=== PATIENT | female | born 1980 | race Caucasian/White ===

== ENCOUNTER 2018-09-26 11:43 | Day surgery (SDC) | payer MEDICAID ==
[2018-09-26 12:21] VITALS: BMI 30.4
[2018-09-26] MEDS ORDERED: hydrALAZINE 20 MG/ML VIAL SLOW IVP PRN (12:46)
--- NOTE | 2018-09-26 13:13 | PRG ---
DATE OF SERVICE: 09/26/2018 TIME OF SERVICE: 1245 hours. PRESENTING COMPLAINT: Vaginal spotting at 33 weeks' gestation by history with other care. HISTORY OF PRESENT ILLNESS: Ms. Dick is a 38-year-old primigravida with EDC of 11/13. She presents caring her records from [facility] in [place]. She has had a complicated by SGA infant with EFW of 7th percentile on last ultrasound, a velamentous insertion. The patient reports constipation last night, was straining on the toilet for approximately 1 hour. This morning, she noticed a small amount of blood on tissue. She has had no gush of fluid. She reports an active fetus. [employer] MEMBER HISTORY: As noted. Blood type is Rh positive. Other labs are within normal limits. The patient was placed on low-dose aspirin early in for a history of maternal hypertension, off medications for several years. PAST SURGICAL HISTORY: Denies. PAST MEDICAL HISTORY: Chronic hypertension, on medications in the past, but none recently. SOCIAL HISTORY: Denies tobacco, alcohol, or drug abuse. ALLERGIES: PCN. MEDICATIONS: 1. Aspirin. 2. Folic acid. 3. vitamins. PHYSICAL EXAMINATION: GENERAL: White female, resting comfortably. VITAL SIGNS: Temperature 98.7, blood pressure 123/69, and pulse 78. HEENT: Within normal limits. LUNGS: Clear to auscultation bilaterally. HEART: Regular rate and rhythm. ABDOMEN: Soft and nontender. Fundal height, 32 cm. FHTs, 140s. VULVA: Without lesions. VAGINA: Without discharge. CERVIX: No cervical bleeding is noted. No abnormality of the cervix was noted on visual exam. Digital exam revealed her cervix was closed, long and high. EXTREMITIES: Without clubbing, cyanosis, or edema. IMPRESSION: 1. Elderly multigravida. 2. Velamentous insertion of the umbilical cord by history. 3. No evidence of supracervical bleeding at this time. 4. Borderline growth restriction noted on last ultrasound at previous MD with normal Dopplers, amniotic fluid, and biophysical profile. The patient has a scheduled appointment with [facility] this next week. We will go ahead today and perform complete OB ultrasound, estimate weight, amniotic fluid index, etc. nonstress test was carried out today, which revealed FHTs of 140s, positive accelerations, no decelerations, category I heart rate tracing, reactive NST. Job ID: [id number] MTDD
--- NOTE | 2018-09-26 13:57 | ULT ---
EXAM: OB ultrasound COMPARISON: None HISTORY: Spotting. Decreased weight. History of velamentous insertion of the umbilical cord. TECHNIQUE: Multiplanar grayscale and color Doppler images were obtained in a transabdominal ult rasound. FINDINGS: There is a single live intrauterine with heart rate of 147 bpm. Estimated weight is 1996 g. Average age of the fetus based off today's examination is 32 weeks 6 days. BPD 8.37 cm -- 33 weeks 5 days HC 29.55 cm -- 32 weeks 5 days AC 28.40 cm -- 32 weeks 3 days FL 6.25 cm -- 32 weeks 3 days The placenta is anterior/fundal in location without focal abnormality. TOMER is 10.0 cm which is normal . The cervix is normal in length. There is no evidence of placenta previa. There appears to be velamentous insertion of the umbilical cord. IMPRESSION: 1. Single live intrauterine with estimated age of 32 weeks 6 days. 2. Redemonstration of velamentous insertion of the umbilical cord.
== END 2018-09-26 14:30 | disposition home health service (06) ==
LOC: L&D/OP 11:43
PROVIDERS: ATTEND Obstetrics & Gynecology
DX: O26.853 Spotting complicating pregnancy, third trimester (principal); O09.523 Supervision of elderly multigravida, third trimester; O43.123 Velamentous insertion of umbilical cord, third trimester; O36.5930 Maternal care for other known or suspected poor fetal growth, third trimester, not applicable or unspecified; O10.913 Unspecified pre-existing hypertension complicating pregnancy, third trimester; Z3A.33 33 weeks gestation of pregnancy; Z88.0 Allergy status to penicillin; Z79.899 Other long term (current) drug therapy; Z79.82 Long term (current) use of aspirin
CPT/HCPCS: 76815; 99283

== ENCOUNTER 2018-10-10 13:02 | Day surgery (SDC) | payer MEDICAID ==
[2018-10-10 13:58] VITALS: TEMP 98.1; BMI 32.8
--- NOTE | 2018-10-10 14:02 | PDOC.LDHP ---
Labor and Delivery H&P HPI: Here for "sotting" Patient of Dr Barajas L&D Triage in [facility] Time: 1400 HPI: 38 yo G1 at 35 weeks, first seem in [place], and then switched to care here. Last seem about 2 weeks ago. In [place], she states had 7th% growth but otherwise wnl...last visit here was 09/26/[address] Barajas. That visit had a sono with EFW that was appropriate for EGA (32 weeks, about 1900 grams). Also with vilamentous cord insert. She was at the [facility] and sent by Dr Rodriguez. She has a HX of CHTN not on meds (but was in past). She was sent here for labs as her BP was 140/100 there. HX chronic HAs which are stable per Dr Rodriguez communication. here for BP eval. Review of Systems: Complete ROS performed and as per HPI Current gestational age (weeks): 35 (1 day) Grav: 1 OB History Details: Last sono with appropriate growth and TOMER on 09/26/18 Abnormal US findings: Yes (suspected vilamentous cord insert) Current medications: pre- vitamins Allergies/Adverse Reactions: Allergies Allergy/AdvReac Type Severity Reaction Status Date / Time Penicillins Allergy Verified 09/26/18 12:24 - Physical Exam Vital signs reviewed and normal: yes (BPs 120/80s afebrile pulse 80-90s) General: NAD Heart: RRR Lungs: CTAB Abdomen: gravid Extremeties: no edema FHT: category 1 [place] contractions every: none - Assessment Primip at 35 weeks, CHTN, vilamentous cord insert suspected, chtn in C... - Plan Plan: observation in L&D ( BPs here so far are 120s/80s. We will observe BPS. Baseline CMP and CBC now. No steroids as BPs look ok right now.)
[2018-10-10] MEDS ORDERED: hydrALAZINE 20 MG/ML VIAL SLOW IVP PRN (14:14)
[2018-10-10 14:45] LABS: #Eosinphils 0.2 thou/uL (0.0-0.7); #Lymphocytes 2.9 thou/uL (1.20-3.40); #Monocytes 0.8 thou/uL (0.11-0.59); #Neutrophils 7.3 thou/uL (1.40-6.50); %Basophils 0.3 % (0.0-1.0); %Eosinophils 1.6 % (0.0-10.0); %Monocytes 6.8 % (0.0-10.0); %Neutrophils 65.3 % (42.0-75.0); Hemoglobin 11.1 g/dL (12.0-16.0); Mean Corpuscular HGB CONC 33.4 g/dL (32.0-36.0); Mean Corpuscular Hemoglobin 32.2 pg (27.0-31.0); Mean Corpuscular Volume 96.4 fL (78.0-98.0); Mean Platelet Volume 6.5 fL (7.4-10.4); Platelet Count 310 thou/uL (130-400); Red Blood Cell (RBC) Count 3.46 mill/uL (4.20-5.40); White Blood Cell (WBC) Count 11.1 thou/uL (4.8-10.8)
[2018-10-10 15:09] LABS: ALT (SGPT) 7 U/L (8-55); AST (SGOT) 13 U/L (5-34); Albumin 3.1 g/dL (3.5-5.0); Alkaline Phosphatase 108 U/L (40-150); Anion Gap 9 mmol/L (10-20); BUN (Urea Nitrogen) 7 mg/dL (7.0-18.7); Bilirubin, Total 0.3 mg/dL (0.2-1.2); Calc. Creatinine Clearance 176 mL/min (70-130); Calcium 9.5 mg/dL (7.8-10.44); Carbon Dioxide 22 mmol/L (22-29); Chloride 107 mmol/L (98-107); Estimated GFR-MDRD Greater than 90; Globulin 3.3 g/dL (2.4-3.5); Glucose 90 mg/dL (70-105); Potassium 3.8 mmol/L (3.5-5.1); Protein, Total 6.4 g/dL (6.0-8.3); Sodium 134 mmol/L (136-145)
[2018-10-10 15:49] LABS: Creatinine, Urine 187.48 mg/dL (47-110)
--- NOTE | 2018-10-10 16:15 | PDOC.EVN ---
Event Note - Event Note Event Note: Pt was monitored and bp remained stable at 120s-130s/70s-80s. Labs returned WNL as below. Urine pr/cr 0.08. Baby was monitored on the FHM with baseline 150s, category 1 strip with multiple accels, no decels, and moderate variability. Pt states SOLORIO's are chronic in nature and unchanged from pre-. No vision changes, RUQ pain, or LE edema. Pt stable and ready for discharge. Discharge plan discussed with patient and patient voiced agreement and understanding of the discharge plan and was eager to go home. She will f/u with [facility] with previously scheduled appointment next week. Laboratory Tests 10/10/18 10/10/18 10/10/18 14:27 14:27 15:00 WBC 11.1 H Hgb 11.1 L Plt Count 310 Sodium 134 L Potassium 3.8 BUN 7 Creatinine 0.58 L Glucose 90 Calcium 9.5 Total Bilirubin 0.3 AST 13 ALT 7 L Alkaline Phosphatase 108 U Random Total Protein 16 H Urine Creatinine 187.48 H FACULTY Note: I have seen and evaluated the patient at bedside. we reviewed her BPs and vilamentous insert. Also has seen MFM. May require 38-39 week IOL. Needs weekly survellance.
== END 2018-10-10 16:58 | disposition home or self-care (01) ==
LOC: L&D/OP 13:02
PROVIDERS: ATTEND Obstetrics & Gynecology
DX: O10.913 Unspecified pre-existing hypertension complicating pregnancy, third trimester (principal); Z88.0 Allergy status to penicillin; Z79.82 Long term (current) use of aspirin; Z79.899 Other long term (current) drug therapy; Z3A.35 35 weeks gestation of pregnancy
CPT/HCPCS: 36415; 80053; 82570; 84156; 85025; 99283

== ENCOUNTER 2018-10-31 05:12 | Inpatient (IN) | payer OTHER ==
--- NOTE | 2018-10-30 22:41 | PDOC.LDHP ---
Labor and Delivery H&P Chief complaint: scheduled section HPI: 38 year old at 38.1 wks with VERO 11/13/2018 presents for scheduled pLTCS. Patient initially considering an external version given breech presentation. However, after discussing increased risk of complications associated with velamentous cord insertion, patient has decided against attempt at external version and would like to proceed directly with C/S. Patient denies vaginal bleeding, vaginal discharge, LoF, or contractions. She feels baby move often. Patient had BPP/NST done yesterday which again confirmed breech presentation. Allergies/Adverse Reactions: Allergies Allergy/AdvReac Type Severity Reaction Status Date / Time Penicillins Allergy Verified 09/26/18 12:24
--- NOTE | 2018-10-30 22:43 | PDOC.FPROB ---
FMR OB H&P: HPI - History of Present Illness Chief Complaint: Scheduled pLTCS for breech presentation Indentification: 38 year old at 38.1 wks by 19.0 wk sono History of Present Illness: 38 year old at 38.1 wks by 19.0 wk sono with VERO 11/13/2018 presents for scheduled pLTCS for breech presentation. Patient initially considering an external version given breech presentation. However, after discussing increased risk of complications associated with velamentous cord insertion, patient has decided against attempt at external version and would like to proceed directly with C/S. Patient denies vaginal bleeding, vaginal discharge, LoF, or contractions. She feels baby move often. Patient had BPP/NST done yesterday which again confirmed breech presentation. 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 History: Denies history of STD's or PID Hx of LEEP HR HPV on Pap smear 05/2018 which was repeated 06/2018 and noted to be negative for HPV - Surgical History Sx History: LEEP in 2017 - Social History Social History: Denies alcohol, tobacco, or drug use - Family History Family History: Denies significant FH FMR OB H&P: Medications - Current Home Medications: Medication Instructions Recorded Confirmed Type Aspirin [Ecotrin Low Strength] 1 tab PO DAILY 09/26/18 10/31/18 History Docusate Calcium [Surfak] 1 tab PO DAILY 09/26/18 10/31/18 History Folic Acid [Folvite] 1 tab PO DAILY 09/26/18 10/31/18 History Vit No.126/Iron/Folic 1 tab PO DAILY 09/26/18 10/31/18 History [Classic ] Acetaminophen [Tylenol] 325 mg PO PRN PRN 10/10/18 10/31/18 History Allergies/Adverse Reactions: Allergies Allergy/AdvReac Type Severity Reaction Status Date / Time Penicillins Allergy Rash Verified 10/31/18 05:50 FMR OB H&P: ROS - Review of Systems General: denies: fever/chills Eyes: denies: vision changes, double vision ENT: denies: nasal congestion, rhinorrhea Cardiovascular: denies: chest pain, palpitation, edema Respiratory: denies: cough, congestion, shortness of breath Gastrointestinal: denies: abdominal pain, nausea, vomiting Genitourinary (Female): denies: dysuria, vaginal discharge, vaginal bleeding, contractions Musculoskeletal: denies: pain, stiffness Neurologic: denies: numbness, weakness Integumentary: denies: itching, rash, lesions Psychological: denies: depression, anxiety FMR OB H&P: Vital Signs - Maternal Vital signs: BP 130/88 Pulse 83 Afebrile - Heart Tones Baseline: 150 Variability: moderate Acceleration: present Deceleration: absent Category: category 1 [place] contractions every: q7 min FMR OB H&P: Physical Exam - Physical Exam General: NAD, awake, alert and oriented HEENT: MMM, grossly normal vision, grossly normal hearing Heart: RRR, pulses present, no edema General: no respiratory distress, good air movement Abdomen: soft, gravid, non-tender Musculoskeletal: pulses present, FROM in all four extremities Neurological: no tremor, no focal deficit Skin: no rash, capillary refill <2 seconds Psychiatric: intact recent and remote memory, good judgement and insight - Pelvic Exam Presentation: Breech FMR OB H&P: A/P - Problem List (1) Term Status: Acute Code(s): Z34.90 - ENCNTR FOR SUPRVSN OF NORMAL , UNSP, UNSP TRIMESTER (2) Chronic hypertension affecting Status: Acute Code(s): O10.919 - UNSP PRE-EXISTING HTN COMP , UNSP TRIMESTER (3) Velamentous insertion of umbilical cord Status: Acute Code(s): O43.129 - VELAMENTOUS INSERTION OF UMBILICAL CORD, UNSP TRIMESTER Qualifiers: Trimester: third trimester Qualified Code(s): O43.123 - Velamentous insertion of umbilical cord, third trimester Disposition: 38 year old at 38.1 wks by 19.0 wk sono presents for scheduled pLTCS 1. Term - Risk factors include velamentous cord insertion, cHTN, AMA, Breech presentation - Patient seen by M and delivery recommended between 38-39 wks - Given velamentous cord insertion and extensive discussion with patient regarding risk of EV, we will proceed with C/S - Bedside sono this AM: Breech presentation, anterior placenta 2. cHTN - Well controlled during - Previous pre-E work ups negative - Continue to monitor BP through PP period - BPP/NST yesterday reactive with TOMER appx 21 cm 3. Velamentous cord insertion - Increased risk of compromise - Given increased risk, will not proceed with external version - Plan for pLTCS - Extensive discussion with patient who agrees with plan 4. Breech presentation - Indication for C/S Dispo: Admit to L&D. Prep for C/S. Discussion: Date/Time: 10/30/18 3848 This H&P was discussed with Dr. Alexander who agrees with the above documentation and plan. Signature: Geovanna Marti DO PGY-3 Addendum - Attending - Attending Attestation Date/Time: 10/31/18 3405 I personally evaluated the patient and discussed the management with Dr. Marti. I agree with the History, Examination, Assessment and Plan documented above with any addition or exceptions noted below. [facility] rec'd delivery 38-39. R/b/a/i of csection discussed including pain/bleeding /infection, damage to internal organs, need for transfusion, reoperation, and patient voiced understanding and desired to proceed with ET PLTCD.
[~2018-10-31 05:12] MED LIST: Ondansetron PF 4 MG/2 ML Vial IVP PRN; Promethazine HCl 25 MG/ML VIAL IM PRN; hydrALAZINE 20 MG/ML VIAL SLOW IVP PRN
[2018-10-31] MEDS ORDERED: Bicitra 30 ML UDCUP PO SCH (06:00)
[2018-10-31 06:01] VITALS: BMI 35.2
[2018-10-31 06:18] LABS: Hemoglobin 12.3 g/dL (12.0-16.0); Mean Corpuscular HGB CONC 34.3 g/dL (32.0-36.0); Mean Corpuscular Hemoglobin 32.9 pg (27.0-31.0); Mean Platelet Volume 7.1 fL (7.4-10.4); Platelet Count 311 thou/uL (130-400); RBC Distribution Width 12.2 % (11.5-14.5); Red Blood Cell (RBC) Count 3.74 mill/uL (4.20-5.40); White Blood Cell (WBC) Count 11.7 thou/uL (4.8-10.8)
[2018-10-31] MEDS ORDERED: CEFAZOLIN 1 GM VIAL SLOW IVP SCH (06:45)
[2018-10-31] MEDS ORDERED: ePHEDrine/0.9% NaCl/PF SYRINGE 50 mg/10 ml ONE (06:46)
[2018-10-31] MEDS ORDERED: Phenylephrine HCL 10 MG/ML VIAL ONE (06:46)
[2018-10-31] MEDS ORDERED: Oxytocin 10 UNITS/ML VIAL ONE ×2 (06:46→08:12)
[2018-10-31] MEDS ORDERED: MORPHINE 5 MG/10 ML PF VIAL ONE (06:47)
[2018-10-31] MEDS ORDERED: Fentanyl 100 MCG/2 ML VIAL ONE (06:47)
[2018-10-31] MEDS ORDERED: Ketorolac Tromethamine 30 MG/ML VIAL ONE ×2 (06:48→17:04)
[2018-10-31] MEDS ORDERED: Ondansetron PF 4 MG/2 ML Vial ONE ×2 (06:48→17:04)
[2018-10-31 06:52] LABS: HBSAg Index 0.34 S/CO (0-0.99); Hep B Surf Ag Non-Reactive S/CO (NonReactive); Syphilis Antibody Nonreactive (Nonreactive); Syphilis Antibody Index 0.04 S/CO (<1.00 Non-Reactive)
[2018-10-31] MEDS ORDERED: CEFAZOLIN 2 GM, Admixture Fee 1 EACH in Sodium Chloride 0.9% 100 ML IVPB SCH (07:00)
[2018-10-31] MEDS: Lactated Ringer's 1,000 ML IV SCH ×2 (07:10→19:33)
[2018-10-31] MEDS ORDERED: Sodium Chloride 0.9% 10 ML ONE (07:16)
[2018-10-31] MEDS ORDERED: Naloxone HCl 0.4 mg/ml Vial IV PRN (08:59)
[2018-10-31] MEDS ORDERED: Promethazine HCl 25 MG/ML VIAL IM PRN (08:59)
[2018-10-31] MEDS ORDERED: Naloxone HCl 0.4 mg/ml Vial IVP PRN ×2 (08:59)
[2018-10-31] MEDS ORDERED: diphenhydrAMINE 50 MG/ML VIAL IVP PRN (08:59)
[2018-10-31] MEDS ORDERED: Promethazine HCl 25 MG SUPP PR PRN (08:59)
[2018-10-31] MEDS ORDERED: Ondansetron PF 4 MG/2 ML Vial IVP PRN ×2 (08:59→12:03)
[2018-10-31] MEDS ORDERED: Communication Order-Pharmacy FS SCH (09:00)
[2018-10-31] MEDS ORDERED: hydrALAZINE 20 MG/ML VIAL SLOW IVP PRN (12:03)
[2018-10-31] MEDS ORDERED: Lanolin Ointment 7 GM TUBE TOP PRN (12:03)
[2018-10-31] MEDS ORDERED: Adacel (T-DAP) 0.5 ML SYRINGE IM ONE (12:03)
[2018-10-31] MEDS ORDERED: NS / Oxytocin 40 units/1000ml 1,000 ML IV SCH (12:03)
--- NOTE | 2018-10-31 13:49 | PDOC.EVN ---
Event Note - Event Note Event Note: 13:30 on 10/31 4h Post op note Patient doing well. Pain currently well controlled. Patient has no complaints. She is and is latching well. General:Alert and oriented x3 Cardio: RRR, BP well controlled Resp: No acute respiratory distress Derm: No rashes or lesions. Pressure dressing intact, clean, and dry. Continue routine PP care. Early ambulation and removal of vargas catheter. Geovanna Marti, DO PGY-3
--- NOTE | 2018-10-31 14:25 | PDOC.OPDEL ---
OB Operative/Delivery Note Delivery Dr/Surgeon: Catherine Marti Assist: Abby Pre-Delivery Diagnosis: breech, scheduled section Procedure/Post Delivery Dx: primary low transverse CS Weeks gestation: 38 (38.1 wks) Anesthesia: spinal - Findings A Sex: female Weight: 2.59 kg - 1 min: 9 - 5 min: 9 - Additional Findings/Plan Placenta delivered: spontaneous findings: low transverse hysterotomy without extension Estimated blood loss: 758 mL Compilations/Other Findings: Date of Procedure: 10/31/2018 Resident Surgeon: Dr. Geovanna Marti Quarter Trimmer Surgeon: Dr. Vonda Mora Attending Surgeon: Dr. Gary Alexander Procedure: Repeat low transverse caesarean section Preoperative Diagnosis: 1. Term intrauterine 2. Breech presentation 3. Velamentous cord 4. cHTN 5. AMA Postoperative Diagnosis: 1. Term intrauterine , delivered 2. Transverse, back up presentation 3. Velamentous cord 4. cHTN 5. AMA Anesthesia: spinal Indications: The patient is a 38 year old female at 38.1 weeks gestation who presents for scheduled pLTCS for breech presentation. Procedure in Detail: After risks, benefits, and alternatives were explained to the patient, she gave informed consent. Pre-operative antibiotics included Cefazolin 2 gram IV. The patient was taken to the operating room and spinal anesthesia was initiated. She was placed in the supine position with a left tilt and prepped and draped in usual sterile fashion. A Pfannenstiel incision was made with a scalpel and carried down to the level of the fascia which was sharply nicked. The fascial cut was extended bilaterally with Marie sissors. The inferior and superior edges of the cut fascial edges were elevated with [place] clamps and the underlying rectus muscles were sharply and bluntly dissected free. The recti were divided digitally and retracted manually. The peritoneum was entered bluntly and retracted manually. Gerry-O was placed. A low transverse score was made with the scalpel and the uterus was entered in the midline with the scalpel. Clear fluid was seen. The hysterotomy was extended manually. The was noted to be transverse, back up and delivered feet first in usual breech fashion. Mouth and nares were bulb suctioned. Cord clamped and cut and grossly normal female infant was handed to waiting nurse. Cord blood was obtained. Placenta was manually extracted, found to be intact with 3 vessel cord and discarded. The endometrium was curetted with a dry lap. The bladder blade was replaced and the uterus was closed with a running locking #1 monofilament suture followed by a running non-locking #1 monofilament imbricating suture. Following this hemostasis was noted. The hysterotomy was again noted to be hemostatic. The peritoneum was closed using 3- 0 vicryl in running non-locking fashion. The fascia was closed with a running non-locking 0-PDS suture. The subcutaneous tissue was irrigated and bleeders were cauterized. The subcutaneous tissue was brought together using 2-0 plain gut in running, non-locking fashion. The skin was approximated with 4-0 monocryl and a pressure dressing was placed. All counts were correct. The patient tolerated the procedure well and was taken to the recovery room in stable condition. Estimated Blood Loss: 758 mL Complications: None Specimens: Cord blood sent to lab for blood type Findings: Grossly normal male/female with apgars of 9 and 9. Grossly normal placenta with 3 vessel velamentous cord discarded. Drains: Colon to gravity draining clear urine Post delivery plan: routine recovery Addendum - Attending - Attending Attestation Date/Time: 11/01/18 [id number] I was present and scrubbed for the entire case.
[2018-10-31] MEDS: Ibuprofen 800 MG TAB PO SCH ×2 (14:47→22:14)
[2018-10-31] MEDS ORDERED: PHENYLEPHRINE-NS 100 MCG/ML 10 ML SYRINGE ONE (17:04)
[2018-10-31] MEDS ORDERED: ePHEDrine 50 MG/ML VIAL ONE (17:04)
[2018-10-31] MEDS: Ketorolac Tromethamine 30 MG/ML VIAL IVP PRN (17:32)
[2018-10-31] MEDS: Docusate Calcium (SURFAK) 240 MG CAP PO SCH (21:59)
[2018-10-31] MEDS: Simethicone Chewable 80 MG TAB PO PRN (21:59)
[2018-10-31] MEDS: HYDROcodone/Acetaminophen 5/325 mg Tablet PO PRN (21:59)
[2018-10-31] MEDS: Ferrous Sulfate 325 MG TAB PO SCH (22:13)
[2018-11-01] MEDS: Ketorolac Tromethamine 30 MG/ML VIAL IVP PRN (00:02)
[2018-11-01] MEDS: HYDROcodone/Acetaminophen 5/325 mg Tablet PO PRN ×4 (02:18→19:10)
[2018-11-01 06:28] LABS: Hemoglobin 9.5 g/dL (12.0-16.0); Mean Corpuscular HGB CONC 33.8 g/dL (32.0-36.0); Mean Corpuscular Volume 97.5 fL (78.0-98.0); Mean Platelet Volume 6.6 fL (7.4-10.4); Platelet Count 242 thou/uL (130-400); RBC Distribution Width 12.2 % (11.5-14.5); Red Blood Cell (RBC) Count 2.88 mill/uL (4.20-5.40); White Blood Cell (WBC) Count 11.2 thou/uL (4.8-10.8)
[2018-11-01] MEDS: Ibuprofen 800 MG TAB PO SCH ×4 (06:32→22:16)
--- NOTE | 2018-11-01 09:13 | PDOC.PP ---
Post Progress Note Post Day #: 1 Subjective: Pt doing well, quite a bit of cramping, minimal bleeding, +PO and flatus. No f/ c/n/v. PO intake tolerated: yes Flatus: yes Ambulation: yes Vital Signs (12 hours) Temp Pulse Resp BP Pulse Ox 11/01/18 07:30 99 F 88 20 116/59 L 97 11/01/18 04:30 98.9 F 81 16 115/62 11/01/18 00:00 98.6 F 94 16 113/69 Weight Weight 90.265 kg - Physical Examination General: NAD Cardiovascular: no m/r/g, RRR Respiratory: clear to auscultation bilaterally, non-labored breathing Abdominal: + bowel sounds Skin: CS incision dry & intact, no rash Neurological: no gross focal deficits Psychiatric: A&Ox3 Result Diagrams: 11/01/18 06:10 Additional Labs: Post Labs Blood Type A POSITIVE 10/31/18 06:56 Hep Bs Antigen Non-Reactive S/CO (NonReactive) 10/31/18 06:02 (1) Term Code(s): Z34.90 - ENCNTR FOR SUPRVSN OF NORMAL , UNSP, UNSP TRIMESTER Status: Acute (2) Chronic hypertension affecting Code(s): O10.919 - UNSP PRE-EXISTING HTN COMP , UNSP TRIMESTER Status : Acute (3) Velamentous insertion of umbilical cord Code(s): O43.129 - VELAMENTOUS INSERTION OF UMBILICAL CORD, UNSP TRIMESTER Status: Acute Qualifiers: Trimester: third trimester Qualified Code(s): O43.123 - Velamentous insertion of umbilical cord, third trimester - Assessment/Plan Overall doing well. Iron, PNV, pain control. Seeing today. Ambulate TID. Plan for d/c tomorrow if continuing to do well.
--- NOTE | 2018-11-01 09:33 | PDOC.PP ---
Post Progress Note Post Day #: 1 Subjective: Patient doing very well. No significant overnight events. Patient ordered breakfast for this AM. She has ambulated to restroom and did well. Colon catheter removed. PO intake tolerated: no (Has not attempted yhet this AM) Flatus: yes Ambulation: yes Vital Signs (12 hours) Temp Pulse Resp BP Pulse Ox 11/01/18 07:30 99 F 88 20 116/59 L 97 11/01/18 04:30 98.9 F 81 16 115/62 11/01/18 00:00 98.6 F 94 16 113/69 Weight Weight 90.265 kg - Physical Examination General: NAD Cardiovascular: no m/r/g, RRR Respiratory: clear to auscultation bilaterally, non-labored breathing Abdominal: + bowel sounds, lochia (minimal, less than period), no distention, appropriately TTP Fundus firm & at: just above umbilicus Extremities: negative homans (B) Skin: CS incision dry & intact, no rash Neurological: no gross focal deficits Psychiatric: A&Ox3, normal affect Result Diagrams: 11/01/18 06:10 Additional Labs: Post Labs Blood Type A POSITIVE 10/31/18 06:56 Hep Bs Antigen Non-Reactive S/CO (NonReactive) 10/31/18 06:02 (1) Term Code(s): Z34.90 - ENCNTR FOR SUPRVSN OF NORMAL , UNSP, UNSP TRIMESTER Status: Acute (2) Chronic hypertension affecting Code(s): O10.919 - UNSP PRE-EXISTING HTN COMP , UNSP TRIMESTER Status : Acute (3) Velamentous insertion of umbilical cord Code(s): O43.129 - VELAMENTOUS INSERTION OF UMBILICAL CORD, UNSP TRIMESTER Status: Acute Qualifiers: Trimester: third trimester Qualified Code(s): O43.123 - Velamentous insertion of umbilical cord, third trimester - Assessment/Plan 38 year old at 38.1 wks by 19.0 wk sono delivered TAGA F infant via pLTCS on 10/31/2018. Apgars 9/9. 1. Term , delivered via pLTCS - Risk factors included velamentous cord insertion, cHTN, AMA, trasverse back up presentation - Routine PP care - Pain well controlled with current medications - PO BID iron supplementation for anemia PP with stool softener for constipation - Colon catheter already removed this AM - Encourage early ambulation 2. cHTN - Well controlled during - Previous pre-E work ups negative - Continue to monitor BP through PP period; BP throughout the night very well controlled and <140/90 3. Velamentous cord insertion - Increased risk of compromise - s/p pLTCS Dispo: Continue to monitor. Encourage early ambulation. Anticipate possible d/c home tomorrow. Addendum - Attending - Attending Attestation Date/Time: 11/01/18 7475 I personally evaluated the patient and discussed the management with Dr. Marti. I agree with the History, Examination, Assessment and Plan documented above with any addition or exceptions noted below.
[2018-11-01] MEDS: Simethicone Chewable 80 MG TAB PO PRN ×2 (09:37→19:10)
[2018-11-01] MEDS: Ferrous Sulfate 325 MG TAB PO SCH ×2 (09:37→22:20)
[2018-11-01] MEDS: Docusate Calcium (SURFAK) 240 MG CAP PO SCH ×2 (09:38→22:16)
[2018-11-01] MEDS: Prenatal Vitamin 1 TAB PO SCH (09:38)
[2018-11-02] MEDS: HYDROcodone/Acetaminophen 5/325 mg Tablet PO PRN ×5 (00:14→22:07)
[2018-11-02] MEDS: Ibuprofen 800 MG TAB PO SCH ×3 (05:40→22:06)
[2018-11-02] MEDS: Ferrous Sulfate 325 MG TAB PO SCH ×2 (08:23→22:07)
[2018-11-02] MEDS: Prenatal Vitamin 1 TAB PO SCH (08:24)
[2018-11-02] MEDS: Docusate Calcium (SURFAK) 240 MG CAP PO SCH ×2 (08:24→22:07)
[2018-11-02] MEDS: Simethicone Chewable 80 MG TAB PO PRN ×4 (08:27→22:06)
--- NOTE | 2018-11-02 10:13 | PDOC.PP ---
Post Progress Note Post Day #: 2 Subjective: Patient doing well. No significant overnight events. Patient tolerating PO, ambulating, passing flatus. Minimal lochia. Pain well controlled. PO intake tolerated: yes Flatus: yes Ambulation: yes Vital Signs (12 hours) Temp Pulse Resp BP Pulse Ox 11/02/18 08:15 98 11/02/18 08:00 98.1 F 94 20 130/70 98 11/02/18 04:30 98.1 F 87 18 112/70 11/02/18 00:05 98.8 F 105 H 18 124/67 Weight Weight 90.265 kg - Physical Examination General: NAD Cardiovascular: no m/r/g, RRR Respiratory: clear to auscultation bilaterally, non-labored breathing Abdominal: + bowel sounds, lochia (minimal), no distention, appropriately TTP Fundus firm & at: below umbilicus Extremities: negative homans (B) Skin: CS incision dry & intact, no rash Neurological: no gross focal deficits Psychiatric: A&Ox3, normal affect Result Diagrams: 11/01/18 06:10 Additional Labs: Post Labs Blood Type A POSITIVE 10/31/18 06:56 Hep Bs Antigen Non-Reactive S/CO (NonReactive) 10/31/18 06:02 (1) Term Code(s): Z34.90 - ENCNTR FOR SUPRVSN OF NORMAL , UNSP, UNSP TRIMESTER Status: Acute (2) Chronic hypertension affecting Code(s): O10.919 - UNSP PRE-EXISTING HTN COMP , UNSP TRIMESTER Status : Acute (3) Velamentous insertion of umbilical cord Code(s): O43.129 - VELAMENTOUS INSERTION OF UMBILICAL CORD, UNSP TRIMESTER Status: Acute Qualifiers: Trimester: third trimester Qualified Code(s): O43.123 - Velamentous insertion of umbilical cord, third trimester - Assessment/Plan 38 year old at 38.1 wks by 19.0 wk sono delivered TAGA F infant via pLTCS on 10/31/2018. Apgars 9/9. 1. Term , delivered via pLTCS - Risk factors included velamentous cord insertion, cHTN, AMA, trasverse back up presentation - Routine PP care - Pain well controlled with current medications - PO BID iron supplementation for anemia PP with stool softener for constipation - Encourage early ambulation 2. cHTN - Well controlled during - Previous pre-E work ups negative - Continue to monitor BP through PP period; BP throughout the night very well controlled and <140/90 3. Velamentous cord insertion - Increased risk of compromise - s/p pLTCS Dispo: Anticipate d/c home tomorrow. Addendum - Attending - Attending Attestation Date/Time: 11/03/18 [id number] I personally evaluated the patient and discussed the management with Dr. Marti on 11/02. I agree with the History, Examination, Assessment and Plan documented above with any addition or exceptions noted below.
[2018-11-03] MEDS: HYDROcodone/Acetaminophen 5/325 mg Tablet PO PRN ×5 (03:00→22:04)
[2018-11-03] MEDS: Ibuprofen 800 MG TAB PO SCH ×3 (05:42→22:04)
[2018-11-03] MEDS: Simethicone Chewable 80 MG TAB PO PRN ×3 (08:12→17:06)
[2018-11-03] MEDS: Docusate Calcium (SURFAK) 240 MG CAP PO SCH ×2 (09:17→22:03)
[2018-11-03] MEDS: Ferrous Sulfate 325 MG TAB PO SCH ×2 (09:17→22:03)
[2018-11-03] MEDS: Prenatal Vitamin 1 TAB PO SCH (09:17)
--- NOTE | 2018-11-03 09:24 | PDOC.PP ---
Post Progress Note Post Day #: 3 Subjective: Patient doing well. No significant overnight events. Tolerating PO, ambulating, passing flatus. Difficulty with . Infant has lost 13% weight. Mother has agreed to supplement with formula. Encouraged continued with supplementation. PO intake tolerated: yes Flatus: yes Ambulation: yes Vital Signs (12 hours) Temp Pulse Resp BP Pulse Ox 11/03/18 08:00 98.6 F 99 16 132/82 99 11/03/18 04:54 98.2 F 97 14 129/71 11/02/18 23:52 98.0 F 106 H 14 120/62 Weight Weight 90.265 kg - Physical Examination General: NAD Cardiovascular: RRR Respiratory: non-labored breathing Abdominal: + bowel sounds, lochia (minimal), no distention, appropriately TTP Fundus firm & at: at umbilicus Extremities: negative homans (B) Skin: CS incision dry & intact, no rash Neurological: no gross focal deficits Psychiatric: A&Ox3, normal affect Result Diagrams: 11/01/18 06:10 Additional Labs: Post Labs Blood Type A POSITIVE 10/31/18 06:56 Hep Bs Antigen Non-Reactive S/CO (NonReactive) 10/31/18 06:02 (1) Term Code(s): Z34.90 - ENCNTR FOR SUPRVSN OF NORMAL , UNSP, UNSP TRIMESTER Status: Acute (2) Chronic hypertension affecting Code(s): O10.919 - UNSP PRE-EXISTING HTN COMP , UNSP TRIMESTER Status : Acute (3) Velamentous insertion of umbilical cord Code(s): O43.129 - VELAMENTOUS INSERTION OF UMBILICAL CORD, UNSP TRIMESTER Status: Acute Qualifiers: Trimester: third trimester Qualified Code(s): O43.123 - Velamentous insertion of umbilical cord, third trimester - Assessment/Plan 38 year old at 38.1 wks by 19.0 wk sono delivered TAGA F via pLTCS on 10/31/2018. Apgars 9/9. 1. Term , delivered via pLTCS - Risk factors included velamentous cord insertion, cHTN, AMA, trasverse back up presentation - Routine PP care - Pain well controlled with current medications, will d/c home with norco - PO BID iron supplementation for anemia PP with stool softener for constipation 2. cHTN - Well controlled during - Previous pre-E work ups negative - Continue to monitor BP through PP period; BP throughout the night very well controlled and <140/90 3. Velamentous cord insertion - Increased risk of compromise - s/p pLTCS Dispo: B&B today. Infant staying d/t weight loss. Addendum - Attending - Attending Attestation Date/Time: 11/03/18 1258 I personally evaluated the patient and discussed the management with Dr. Marti I agree with the History, Examination, Assessment and Plan documented above with any addition or exceptions noted below. 38 yo female s/p PLTCS on 10/31/18 at 0804 2/2 malpositioning POD#3 Patient doing well. Lochia mild. Pain controlled. Voiding, eating, and ambulating well. Difficulty with breast feeding. VS, Labs, record reviewed. Agree with PE documented above. RRR. No M/R/G. CTAB. No W/C/R. Fundus firm and nontender. Incision clean, dry, intact, no erythema, nontender. 1. s/p PLTCS: Discussed prevention for at least 18 months. Meeting milestones. Follow up in 1 wk for incision check. 2. cHTN: BP stable. Encourage BID monitoring at home. Still at risk for preE complications. Follow up in 1 wk for BP check. Asymptomatic at this time. 3. AMA 4. Breast feeding: Difficulty with latch. consulted to re-address today. Infant with significant weight loss due to poor caloric intake. Measure EBM throughout the day. 5. Contraception: LARC Possible d/c to home vs BNB overnight vs continued monitoring as inpatient. Reassess this afternoon. Continue to discuss importance of sleep habits and feeding habits for . Breast pump at bedside. Kinza
[2018-11-04 06:00] VITALS: TEMP 98.2
[2018-11-04] MEDS: HYDROcodone/Acetaminophen 5/325 mg Tablet PO PRN ×3 (06:03→15:17)
[2018-11-04] MEDS: Ibuprofen 800 MG TAB PO SCH ×2 (06:03→13:02)
[2018-11-04 08:07] VITALS: BP 117/72
[2018-11-04] MEDS: Docusate Calcium (SURFAK) 240 MG CAP PO SCH (09:11)
[2018-11-04] MEDS: Prenatal Vitamin 1 TAB PO SCH (09:11)
[2018-11-04] MEDS: Ferrous Sulfate 325 MG TAB PO SCH (09:11)
--- NOTE | 2018-11-04 09:31 | PDOC.PP ---
Post Progress Note Post Day #: 4 Subjective: Patient doing well. No significant overnight events. Patient tolerating PO, ambulating, passing flatus. Infant with trouble . career consultant went by yesterday and recommended speech therapy for infant as it seemed to have food aversion. did better with particular nipples for bottles. It also seems to prefer formula over EBM. Patient is more encouraged now that seems to be gaining weight. She had a very stressful day yesterday trying to figure out why her infant would not feed. Her BP high was 151/99. Patient asymptomatic. Patient not currently on medications. Her BP returned to normal without any medication interventions. PO intake tolerated: yes Flatus: yes Ambulation: yes Vital Signs (12 hours) Temp Pulse Resp BP Pulse Ox 11/04/18 08:06 98.2 F 82 20 117/72 99 11/04/18 07:40 99 11/04/18 05:59 98.2 F 91 129/71 11/03/18 23:35 98.3 F 82 16 144/70 H 11/03/18 23:20 98.3 F 82 144/70 H Weight Weight 90.265 kg - Physical Examination General: NAD Cardiovascular: no m/r/g, RRR Respiratory: clear to auscultation bilaterally, non-labored breathing Abdominal: + bowel sounds, lochia (minimal), no distention, appropriately TTP Fundus firm & at: below umbilicus Extremities: negative homans (B) Skin: CS incision dry & intact, no rash Neurological: no gross focal deficits Psychiatric: A&Ox3, normal affect Result Diagrams: 11/01/18 06:10 Additional Labs: Post Labs Blood Type A POSITIVE 10/31/18 06:56 Hep Bs Antigen Non-Reactive S/CO (NonReactive) 10/31/18 06:02 (1) Term Code(s): Z34.90 - ENCNTR FOR SUPRVSN OF NORMAL , UNSP, UNSP TRIMESTER Status: Acute (2) Chronic hypertension affecting Code(s): O10.919 - UNSP PRE-EXISTING HTN COMP , UNSP TRIMESTER Status : Acute (3) Velamentous insertion of umbilical cord Code(s): O43.129 - VELAMENTOUS INSERTION OF UMBILICAL CORD, UNSP TRIMESTER Status: Acute Qualifiers: Trimester: third trimester Qualified Code(s): O43.123 - Velamentous insertion of umbilical cord, third trimester - Assessment/Plan 38 year old at 38.1 wks by 19.0 wk sono delivered JOSEA F infant via pLTCS on 10/31/2018. Apgars 9/9. 1. Term , delivered via pLTCS - Post op day #4 - Risk factors included velamentous cord insertion, cHTN, AMA, trasverse back up presentation - Routine PP care - Pain well controlled with current medications, will d/c home with norco - PO BID iron supplementation for anemia PP with stool softener for constipation 2. cHTN - Well controlled during - Previous pre-E work ups negative - Continue to monitor BP through PP period; BP high to 151/99. Patient asymptomatic. Patient will need close monitoring outpatient to determine whether or not she will need to be on medications going forward. - No signs/symptoms of pre-E 3. Velamentous cord insertion - Increased risk of compromise - s/p pLTCS Dispo: Plan to d/c home today. Addendum - Attending - Attending Attestation Date/Time: 11/04/18 4830 I personally evaluated the patient and discussed the management with Dr. Marti I agree with the History, Examination, Assessment and Plan documented above with any addition or exceptions noted below. 38 yo female s/p PLTCS on 10/31/18 at 0804 2/2 malpositioning POD#4 Doing well. Pain controlled. Lochia mild. No complaints. +flatus. still with poor latch to breast. VS, Labs, record reviewed. Agree with PE documented above. RRR. No M/R/G. CTAB. No W/C/R. Fundus firm and nontender. Incision clean, dry, intact, no erythema, nontender. 1. s/p PLTCS: prevention for at least 18 months. Meeting milestones. Follow up in 1 wk for incision check. Ok to d/c to home today. 2. cHTN: BP mild range x 3. Encourage BID monitoring at home. Still at risk for preE complications. Follow up in 1 wk for BP check. Asymptomatic at this time. 3. AMA 4. Breast feeding: Difficulty with latch. following. Infant with significant weight loss due to poor caloric intake. Mother now with improved and let down. Measured EBM adequate at this time. Formula supplementation due to weight loss. 5. Contraception: LARC Education provided today. D/C to home. Follow later this week at [facility]. [facility]
[2018-11-04] MEDS: Simethicone Chewable 80 MG TAB PO PRN (11:18)
== END 2018-11-04 18:45 | disposition home or self-care (01) | DRG 787 ==
LOC: L&D 05:12 → 3SW 11:27
PROVIDERS: ADMIT Emergency Medicine; ATTEND Emergency Medicine
PROC: 10D00Z1 Extraction of Products of Conception, Low, Open Approach (ICD-10-PCS; principal; 2018-10-31)
DX: O32.1XX0 Maternal care for breech presentation, not applicable or unspecified (principal); O10.92 Unspecified pre-existing hypertension complicating childbirth; O43.123 Velamentous insertion of umbilical cord, third trimester; Z3A.38 38 weeks gestation of pregnancy; Z37.0 Single live birth; Z88.0 Allergy status to penicillin
CPT/HCPCS: 36415; 51702; 85027; 86780; 86850; 86900; 86901; 87340; J0690; J1200; J1885; J2274; J2370; J2405; J2590; J3010; J3490

== ENCOUNTER 2018-11-05 10:04 | Day surgery (SDC) | payer OTHER ==
[2018-11-05 10:50] VITALS: BMI 30.9
[2018-11-05 11:31] LABS: #Eosinphils 0.5 thou/uL (0.0-0.7); #Monocytes 0.5 thou/uL (0.11-0.59); #Neutrophils 6.2 thou/uL (1.40-6.50); %Basophils 0.3 % (0.0-1.0); %Eosinophils 4.9 % (0.0-10.0); %Lymphocytes 21.8 % (21.0-51.0); %Monocytes 5.1 % (0.0-10.0); %Neutrophils 67.9 % (42.0-75.0); Hemoglobin 10.3 g/dL (12.0-16.0); Mean Corpuscular HGB CONC 33.7 g/dL (32.0-36.0); Mean Corpuscular Hemoglobin 32.1 pg (27.0-31.0); Mean Corpuscular Volume 95.2 fL (78.0-98.0); Mean Platelet Volume 6.3 fL (7.4-10.4); Platelet Count 308 thou/uL (130-400); RBC Distribution Width 11.7 % (11.5-14.5); Red Blood Cell (RBC) Count 3.22 mill/uL (4.20-5.40); White Blood Cell (WBC) Count 9.2 thou/uL (4.8-10.8)
[2018-11-05] MEDS ORDERED: HYDROcodone/Acetaminophen 5/325 mg Tablet PO PRN ×2 (11:52)
[2018-11-05 11:53] LABS: ALT (SGPT) 13 U/L (8-55); AST (SGOT) 19 U/L (5-34); Albumin 3.1 g/dL (3.5-5.0); Alkaline Phosphatase 86 U/L (40-150); Anion Gap 11 mmol/L (10-20); BUN (Urea Nitrogen) 11 mg/dL (7.0-18.7); Bilirubin, Total 0.3 mg/dL (0.2-1.2); Calc. Creatinine Clearance 166 mL/min (70-130); Calcium 8.8 mg/dL (7.8-10.44); Carbon Dioxide 21 mmol/L (22-29); Chloride 107 mmol/L (98-107); Estimated GFR-MDRD Greater than 90; Globulin 3.2 g/dL (2.4-3.5); Glucose 78 mg/dL (70-105); Potassium 4.1 mmol/L (3.5-5.1); Protein, Total 6.3 g/dL (6.0-8.3); Sodium 135 mmol/L (136-145)
[2018-11-05] MEDS ORDERED: HYDROcodone/Acetaminophen 5/325 mg Tablet PO SCH (12:00)
--- NOTE | 2018-11-05 12:29 | PDOC.FPROB ---
FMR OB H&P: HPI - History of Present Illness Chief Complaint: Lower extremity swelling and elevated BPs History of Present Illness: This is a 38 yo who delivered via pLTCS due to breech presentation on , who presents today to L&D with a cc of worsening lower extremity swelling and elevated BP. She states that the swelling has been present since her delivery but has worsened over the last few days. She denies nausea, vomiting, new headaches, changes in her vision or seeing spots, or chest pain. She does report continued soreness in her abdomen following her c section. Her BPs were as high as 140-150s systolic prior to arrival. 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: Denies STIs or PID Hxof LEEP HR HPV on pap in 05/2018, but negative in 06/2018 - Surgical History Sx History: Leep in 2017 pLTCS 10/31/18 - Social History Social History: Denies SUNITA - Family History Family History: Noncontributory FMR OB H&P: Medications - Current Home Medications: Medication Instructions Recorded Confirmed Type Vit No.126/Iron/Folic 1 tab PO DAILY 09/26/18 10/31/18 History [Classic ] Docusate Calcium [Surfak] 240 mg PO BID #30 cap 11/03/18 Rx Ferrous Sulfate [Feosol] 325 mg PO BID #30 tab 11/03/18 Rx HYDROcodone Bit/APAP 5/325 [[place]] 1 tab PO Q4H PRN #10 tab 11/03/18 Rx Ibuprofen [Motrin] 800 mg PO Q8HR #30 tab 11/03/18 Rx Allergies/Adverse Reactions: Allergies Allergy/AdvReac Type Severity Reaction Status Date / Time Penicillins Allergy Rash Verified 10/31/18 05:50 FMR OB H&P: ROS - Review of Systems General: denies: fever/chills, weight/appetite/sleep changes Eyes: denies: eye pain, vision changes ENT: denies: nasal congestion, frequent nose bleed Cardiovascular: reports: edema. denies: chest pain, palpitation Respiratory: denies: cough, shortness of breath Gastrointestinal: reports: abdominal pain. denies: indigestion, cramping Genitourinary (Female): denies: incontinence, dysuria Musculoskeletal: denies: pain, stiffness Neurologic: denies: numbness, syncope, weakness Hematologic/Lymphatic: denies: prolonged or excessive bleeding, enlarged lymph nodes Psychological: denies: depression, anxiety [facility] OB H&P: Vital Signs - Maternal Vital signs: BP 144/86 One bp as high as 169/92, however pt was taking at the time and in pain. FMR OB H&P: Physical Exam - Physical Exam General: NAD, awake, alert and oriented HEENT: normocephalic and atraumatic, PERRLA, MMM Chest: non-tender to palpation, no lesions Heart: RRR, normal S1/S2 General: CTAB, no respiratory distress, good air movement Abdomen: soft, other (appropriate ttp) Musculoskeletal: pulses present, FROM in all four extremities Neurological: DTR +3 (globally) Skin: no rash Lymphatic: no unusual bruising or bleeding Psychiatric: intact recent and remote memory, good judgement and insight FMR OB H&P: Results - Labs Lab results: Laboratory Results - last 24 hr 11/05/18 11/05/18 11:06 11:06 WBC 9.2 RBC 3.22 L Hgb 10.3 L Hct 30.6 L MCV 95.2 MCH 32.1 H MCHC 33.7 RDW 11.7 Plt Count 308 MPV 6.3 L Neutrophils % 67.9 Lymphocytes % 21.8 Monocytes % 5.1 Eosinophils % 4.9 Basophils % 0.3 Neutrophils # 6.2 Lymphocytes # 2.0 Monocytes # 0.5 Eosinophils # 0.5 Basophils # 0.0 Sodium 135 L Potassium 4.1 Chloride 107 Carbon Dioxide 21 L Anion Gap 11 BUN 11 Creatinine 0.58 L Estimated GFR (MDRD) Greater than 90 Glucose 78 Calcium 8.8 Total Bilirubin 0.3 AST 19 ALT 13 Alkaline Phosphatase 86 Serum Total Protein 6.3 Albumin 3.1 L Globulin 3.2 Albumin/Globulin Ratio 1.0 L FMR OB H&P: A/P - Problem List (1) Chronic hypertension affecting Current Visit: No Status: Acute Code(s): O10.919 - UNSP PRE-EXISTING HTN COMP , UNSP TRIMESTER Disposition: This is a 38 yo who delivered via pLTCS on 10/31 pre-eclampsia rule/out -Pending CBC, CMP, urine protein/creatinine ratio -Serial blood pressures -Propping up legs for edema -One time dose of torsemide 20mg for edema cHTN -Well controlled during Post pLTCS -[place] for pain control Discussion: Date/Time: 11/05/18 9962 This H&P was discussed with Dr. Cox who agrees with the above documentation and plan.
[2018-11-05 12:47] LABS: Creatinine, Urine 48.43 mg/dL (47-110); Protein, Urine Random Quant Less than 10 mg/dL (1-14)
[2018-11-05] MEDS ORDERED: Torsemide 20 MG TAB PO SCH (13:30)
== END 2018-11-05 16:30 | disposition home or self-care (01) ==
LOC: L&D/OP 10:04
PROVIDERS: ATTEND Emergency Medicine
DX: O11.5 Pre-existing hypertension with pre-eclampsia, complicating the puerperium (principal); O10.93 Unspecified pre-existing hypertension complicating the puerperium; O90.89 Other complications of the puerperium, not elsewhere classified; Z88.0 Allergy status to penicillin
CPT/HCPCS: 36415; 80053; 82570; 83880; 84156; 84550; 85025; 99283

== ENCOUNTER 2020-08-25 11:02 | Inpatient (IN) | payer MEDICAID, SELFPAY ==
[2020-08-25] MEDS ORDERED: Multivitamins, Adult 10 ML, Thiamine HCl 100 MG, Folic Acid 1 MG in Dextrose 5 %-0.45 %... IV SCH (12:00)
[2020-08-25] MEDS ORDERED: chlordiazePOXIDE HCl 25 MG CAP ONE (12:06)
[2020-08-25] MEDS ORDERED: Lorazepam 2 MG/ML VIAL ONE ×2 (12:06→13:33)
[2020-08-25 12:13] LABS: #Basophils 0.1 thou/uL (0.0-0.2); #Eosinphils 0.1 thou/uL (0.0-0.7); #Lymphocytes 1.5 thou/uL (1.20-3.40); #Monocytes 0.7 thou/uL (0.11-0.59); #Neutrophils 2.6 thou/uL (1.40-6.50); %Basophils 1.1 % (0.0-1.0); %Eosinophils 1.4 % (0.0-10.0); %Lymphocytes 30.1 % (21.0-51.0); %Monocytes 14.8 % (0.0-10.0); %Neutrophils 52.6 % (42.0-75.0); Hemoglobin 12.1 g/dL (12.0-16.0); MDiff Complete? YES; Macrocytosis SLIGHT = 6-15 cells (100X) (0-5/hpf); Mean Corpuscular HGB CONC 34.6 g/dL (32.0-36.0); Mean Corpuscular Hemoglobin 36.4 pg (27.0-31.0); Mean Platelet Volume 7.3 fL (7.4-10.4); Platelet Count 142 thou/uL (130-400); RBC Distribution Width 10.5 % (11.5-14.5); Red Blood Cell (RBC) Count 3.31 mill/uL (4.20-5.40); White Blood Cell (WBC) Count 4.9 thou/uL (4.8-10.8)
[2020-08-25 12:17] LABS: ALT (SGPT) 54 U/L (8-55); AST (SGOT) 120 U/L (5-34); Acetaminophen Less than 6.0 mcg/mL (10.0-30.0); Albumin 4.3 g/dL (3.5-5.0); Alcohol Less than 10 mg/dL (Less than 10); Alkaline Phosphatase 78 U/L (40-110); Anion Gap 14 mmol/L (10-20); BUN (Urea Nitrogen) 17 mg/dL (7.0-18.7); Bilirubin, Total 0.9 mg/dL (0.2-1.2); Calc. Creatinine Clearance 0 mL/min (70-130); Calcium 9.3 mg/dL (7.8-10.44); Carbon Dioxide 21 mmol/L (22-29); Chloride 104 mmol/L (98-107); Globulin 3.6 g/dL (2.4-3.5); Glucose 90 mg/dL (70-105); Potassium 3.1 mmol/L (3.5-5.1); Protein, Total 7.9 g/dL (6.0-8.3); Salicylate Less than 8.0 mg/dL (15.0-30.0); Sodium 136 mmol/L (136-145)
[2020-08-25] MEDS ORDERED: Magnesium 2 GM/50 ML 2 GM in Premix Bag 1 BAG IVPB SCH (13:45)
[2020-08-25] MEDS ORDERED: Potassium Phosphate 30 MMOL in Sodium Chloride 0.9% 250 ML 250 ML IVPB SCH (13:45)
[2020-08-25] MEDS ORDERED: Diazepam 5 MG TAB PO PRN (13:46)
[2020-08-25] MEDS ORDERED: Thiamine HCl 200 MG/2 ML VIAL IM SCH (14:00)
[2020-08-25] MEDS ORDERED: Diazepam 5 MG TAB PO SCH (14:00)
[2020-08-25] MEDS ORDERED: Lorazepam 2 MG/ML VIAL SLOW IVP PRN (14:54)
[2020-08-25] MEDS ORDERED: Diazepam 10 MG/2 ML SYRINGE IVP SCH (15:00)
[2020-08-25] MEDS ORDERED: Diazepam 10 MG/2 ML SYRINGE IVP PRN (15:02)
[2020-08-25] MEDS ORDERED: Ondansetron PF 4 MG/2 ML Vial IVP PRN (15:06)
[2020-08-25] MEDS ORDERED: Ondansetron ODT 4 MG TAB PO PRN (15:06)
[2020-08-25 15:15] LABS: Bilirubin Negative (Negative); Blood, Urine Negative (Negative); Clarity Clear (Clear); Glucose, Urine (Dipstick) Greater than 1000 mg/dL (Negative); Ketone, Urine Negative (Negative); Leukocyte Negative Leu/uL (Negative); Nitrite Negative (Negative); Protein, Urine (Dipstick) Negative (Neg-Trace); Specific Gravity, Urine 1.008 (1.002-1.036); Urobilinogen Normal mg/dL (Less than 2)
[2020-08-25 15:16] LABS: Pregnancy Test - Urine (BHCG) Negative (Negative); Pregu Control Background? CLEAR/WHITE (CLR/WHITE); Pregu Control Bar Appear? YES (CONTROL BAR); Specific Gravity 1.008 (1.002-1.036)
[2020-08-25 15:29] LABS: Cocaine Metabolite Screen Not Detected (NotDetected); Medtox Reader # READER 4; Methamphetamine Not Detected (NotDetected); Phencyclidine (PCP) Not Detected (NotDetected); THC/Cannabinoid Screen Not Detected (NotDetected)
[2020-08-25 15:30] LABS: Amphetamine Not Detected (NotDetected); Barbiturates Screen Not Detected (NotDetected); Benzodiazepine Screen Detected (NotDetected); Medtox Control Line Valid? VALID (VALID); Methadone Not Detected (NotDetected); Opiate Screen Not Detected (NotDetected); Oxycodone Screen Not Detected (NotDetected); Tricyclic Screen Not Detected (NotDetected)
[2020-08-25 16:48] LABS: SARS-CoV-2 NAA Rapid Test Not Detected (NotDetected)
[2020-08-25] MEDS ORDERED: Diazepam 10 MG/2 ML SYRINGE ONE ×3 (16:59→18:29)
[2020-08-25] MEDS: Diazepam 10 MG/2 ML SYRINGE IVP PRN ×2 (17:43→18:33)
[2020-08-25 20:39] VITALS: BMI 24.5
[2020-08-25 21:02] LABS: Anion Gap 11 mmol/L (10-20); BUN (Urea Nitrogen) 10 mg/dL (7.0-18.7); Calc. Creatinine Clearance 123 mL/min (70-130); Calcium 8.4 mg/dL (7.8-10.44); Carbon Dioxide 21 mmol/L (22-29); Chloride 107 mmol/L (98-107); Glucose 99 mg/dL (70-105); Sodium 136 mmol/L (136-145)
[2020-08-26 03:45] LABS: Anion Gap 9 mmol/L (10-20); BUN (Urea Nitrogen) 9 mg/dL (7.0-18.7); Calc. Creatinine Clearance 129 mL/min (70-130); Calcium 8.6 mg/dL (7.8-10.44); Carbon Dioxide 23 mmol/L (22-29); Chloride 110 mmol/L (98-107); Glucose 83 mg/dL (70-105); Magnesium 2.2 mg/dL (1.6-2.6); Potassium 3.1 mmol/L (3.5-5.1); Sodium 139 mmol/L (136-145)
[2020-08-26] MEDS ORDERED: Diazepam 5 MG TAB PO PRN (04:00)
[2020-08-26 04:17] LABS: Band 2 % (5-11); Eosinophils 4 % (0-10); Hemoglobin 11.4 g/dL (12.0-16.0); Lymphocytes 61 % (21-51); MDiff Complete? YES; Mean Corpuscular HGB CONC 34.4 g/dL (32.0-36.0); Mean Corpuscular Hemoglobin 36.8 pg (27.0-31.0); Mean Platelet Volume 6.9 fL (7.4-10.4); Monocytes 10 % (0-10); Neutrophil 23 % (42-75); Platelet Count 137 thou/uL (130-400); RBC Distribution Width 10.7 % (11.5-14.5); White Blood Cell (WBC) Count 4.4 thou/uL (4.8-10.8)
[2020-08-26] MEDS: Magnesium Oxide 400 MG TAB PO SCH (07:59)
[2020-08-26] MEDS: Multivitamin W/ Minerals 1 TAB PO SCH (08:00)
[2020-08-26] MEDS: Folic Acid 1 MG TAB PO SCH (08:00)
[2020-08-26] MEDS: Thiamine 100 MG TAB PO SCH (08:00)
[2020-08-26] MEDS ORDERED: Potassium Chloride 20 MEQ TAB PO SCH (12:45)
[2020-08-26] MEDS: Potassium Chloride 20 MEQ TAB PO SCH (16:37)
[2020-08-27 06:36] LABS: Hemoglobin 11.2 g/dL (12.0-16.0); Mean Corpuscular HGB CONC 33.3 g/dL (32.0-36.0); Mean Corpuscular Hemoglobin 35.9 pg (27.0-31.0); Platelet Count 166 thou/uL (130-400); RBC Distribution Width 10.6 % (11.5-14.5); Red Blood Cell (RBC) Count 3.11 mill/uL (4.20-5.40); White Blood Cell (WBC) Count 4.6 thou/uL (4.8-10.8)
[2020-08-27 06:37] LABS: Eosinophils 5 % (0-10); Lymphocytes 49 % (21-51); MDiff Complete? YES; Monocytes 18 % (0-10); Neutrophil 28 % (42-75)
[2020-08-27 06:43] LABS: ALT (SGPT) 72 U/L (8-55); AST (SGOT) 129 U/L (5-34); Albumin 3.6 g/dL (3.5-5.0); Alkaline Phosphatase 66 U/L (40-110); Anion Gap 8 mmol/L (10-20); BUN (Urea Nitrogen) 8 mg/dL (7.0-18.7); Bilirubin, Total 0.5 mg/dL (0.2-1.2); Calc. Creatinine Clearance 117 mL/min (70-130); Carbon Dioxide 22 mmol/L (22-29); Chloride 111 mmol/L (98-107); Globulin 3.1 g/dL (2.4-3.5); Glucose 93 mg/dL (70-105); Potassium 3.9 mmol/L (3.5-5.1); Protein, Total 6.7 g/dL (6.0-8.3); Sodium 137 mmol/L (136-145)
[2020-08-27] MEDS: Multivitamin W/ Minerals 1 TAB PO SCH (10:21)
[2020-08-27] MEDS: Magnesium Oxide 400 MG TAB PO SCH (10:22)
[2020-08-27] MEDS: Potassium Chloride 20 MEQ TAB PO SCH ×2 (10:22→16:57)
[2020-08-27] MEDS: Folic Acid 1 MG TAB PO SCH (10:22)
[2020-08-27] MEDS: Thiamine 100 MG TAB PO SCH (10:22)
[2020-08-28 06:24] LABS: Mean Corpuscular HGB CONC 33.3 g/dL (32.0-36.0); Mean Platelet Volume 6.9 fL (7.4-10.4); Platelet Count 220 thou/uL (130-400); RBC Distribution Width 10.7 % (11.5-14.5); Red Blood Cell (RBC) Count 3.07 mill/uL (4.20-5.40); White Blood Cell (WBC) Count 6.1 thou/uL (4.8-10.8)
[2020-08-28 07:45] LABS: Band 3 % (5-11); Eosinophils 4 % (0-10); Lymphocytes 50 % (21-51); MDiff Complete? YES; Monocytes 12 % (0-10); Neutrophil 30 % (42-75)
[2020-08-28] MEDS: Potassium Chloride 20 MEQ TAB PO SCH (08:59)
[2020-08-28] MEDS: Magnesium Oxide 400 MG TAB PO SCH (10:49)
[2020-08-28] MEDS: Thiamine 100 MG TAB PO SCH (10:49)
[2020-08-28] MEDS: Multivitamin W/ Minerals 1 TAB PO SCH (10:49)
[2020-08-28] MEDS: Folic Acid 1 MG TAB PO SCH (10:49)
[2020-08-28 15:29] VITALS: BP 136/86; TEMP 98.2
== END 2020-08-28 15:20 | disposition home or self-care (01) | DRG 896 ==
LOC: ERS 11:02 → ERHOLD 13:37 → IMCU/EMU 20:04 → T4-B 08-26 14:57
PROVIDERS: ADMIT Internal Medicine; ATTEND Internal Medicine
DX: F10.231 Alcohol dependence with withdrawal delirium (principal); G92 Toxic encephalopathy; E51.2 Wernicke's encephalopathy; E87.6 Hypokalemia; F31.9 Bipolar disorder, unspecified; F41.9 Anxiety disorder, unspecified; Z20.822 Contact with and (suspected) exposure to COVID-19; Z88.0 Allergy status to penicillin; Z87.891 Personal history of nicotine dependence; Z90.89 Acquired absence of other organs
CPT/HCPCS: 0240U; 36415; 70450; 80048; 80053; 80306; 80307; 81003; 81025; 83735; 84443; 85025; 96365; 96366; 96375; 96376; J2060; J3360; J3411; J3475; J3490; J7042; J7050

== ENCOUNTER 2022-02-11 12:36 | Emergency (ER) | payer MEDICAID, OTHER ==
[2022-02-11 14:14] LABS: Hemoglobin 14.6 g/dL (12.0-16.0); Mean Corpuscular HGB CONC 34.4 g/dL (32.0-36.0); Mean Corpuscular Hemoglobin 37.1 pg (27.0-31.0); Mean Platelet Volume 7.9 fL (7.4-10.4); Platelet Count 142 10x3/uL (130-400); Red Blood Cell (RBC) Count 3.94 mill/uL (4.20-5.40); White Blood Cell (WBC) Count 4.3 10x3/uL (4.8-10.8)
[2022-02-11 14:30] LABS: ALT (SGPT) 48 U/L (8-55); AST (SGOT) 122 U/L (5-34); Albumin 4.1 g/dL (3.5-5.0); Alkaline Phosphatase 98 U/L (40-110); Anion Gap 18 mmol/L (10-20); BUN (Urea Nitrogen) 17 mg/dL (7.0-18.7); Bilirubin, Total 1.3 mg/dL (0.2-1.2); Calc. Creatinine Clearance 0 mL/min (70-130); Carbon Dioxide 21 mmol/L (22-29); Chloride 96 mmol/L (98-107); Estimated GFR 109; Globulin 4.6 g/dL (2.4-3.5); Glucose 85 mg/dL (70-105); Protein, Total 8.7 g/dL (6.0-8.3); Sodium 132 mmol/L (136-145)
[2022-02-11 14:36] LABS: Band 2 % (5-11); Lymphocytes 30 % (21-51); MDiff Complete? YES; Macrocytosis SLIGHT = 6-15 cells (100X) (0-5/hpf); Monocytes 19 % (0-10); Neutrophil 40 % (42-75); Platelet Morphology Comment Appears Adequate; Polychromasia SLIGHT = 2-3 cells (100X) (0-2/hpf); Reactive Lymphocytes 7 % (0-10)
[2022-02-11] MEDS ORDERED: Ketorolac Tromethamine 30 MG/ML VIAL ONE (15:10)
[2022-02-11] MEDS ORDERED: Ondansetron PF 4 MG/2 ML Vial ONE (15:10)
[2022-02-11] MEDS ORDERED: Dicyclomine 20 MG TAB ONE (15:10)
[2022-02-11 15:34] LABS: Bilirubin 1+ (Negative); Blood, Urine Negative (Negative); Clarity Clear (Clear); Glucose, Urine (Dipstick) Normal (Negative); Ketone, Urine 60 mg/dL (Negative); Leukocyte Negative Leu/uL (Negative); Nitrite Negative (Negative); Protein, Urine (Dipstick) 20 mg/dL (Neg-Trace); Specific Gravity, Urine 1.023 (1.002-1.036); Urobilinogen 12 mg/dL (Less than 2)
[2022-02-11 15:57] LABS: BHCG - Serum Negative (NEGATIVE); Pregs Control Background? CLEAR/WHITE (CLR/WHITE); Pregs Control Bar Appear? YES (CONTROL BAR)
[2022-02-11] MEDS ORDERED: Potassium Chloride 20 MEQ TAB ONE (16:25)
== END 2022-02-11 17:56 | disposition home or self-care (01) ==
LOC: ERS 12:36
DX: A08.4 Viral intestinal infection, unspecified (principal); I10 Essential (primary) hypertension; Z87.891 Personal history of nicotine dependence
CPT/HCPCS: 36415; 71045; 80053; 81003; 83690; 84703; 85025; 96374; 96375; J1885; J2405

== ENCOUNTER 2022-05-24 16:13 | Emergency (ER) | payer OTHER ==
[~2022-05-24 16:13] MED LIST changes: +Iopamidol-370 76% 500 ML 1 ML ONE; -Ondansetron PF 4 MG/2 ML Vial IVP PRN; -Promethazine HCl 25 MG/ML VIAL IM PRN; -hydrALAZINE 20 MG/ML VIAL SLOW IVP PRN
[2022-05-24] MEDS ORDERED: Ondansetron ODT 4 MG TAB ONE (16:34)
[2022-05-24 16:41] LABS: #Eosinphils 0.1 thou/uL (0.0-0.7); #Lymphocytes 1.9 thou/uL (1.20-3.40); #Monocytes 0.8 thou/uL (0.11-0.59); #Neutrophils 5.6 thou/uL (1.40-6.50); %Basophils 0.3 % (0.0-1.0); %Eosinophils 0.8 % (0.0-10.0); %Lymphocytes 22.5 % (21.0-51.0); %Monocytes 9.1 % (0.0-10.0); %Neutrophils 67.4 % (42.0-75.0); Hemoglobin 14.7 g/dL (12.0-16.0); Mean Corpuscular HGB CONC 34.1 g/dL (32.0-36.0); Mean Corpuscular Hemoglobin 37.4 pg (27.0-31.0); Mean Platelet Volume 7.4 fL (7.4-10.4); Platelet Count 294 10x3/uL (130-400); RBC Distribution Width 12.4 % (11.5-14.5); Red Blood Cell (RBC) Count 3.93 mill/uL (4.20-5.40); White Blood Cell (WBC) Count 8.2 10x3/uL (4.8-10.8)
[2022-05-24 16:47] LABS: BHCG - Serum Negative (NEGATIVE); Pregs Control Background? CLEAR/WHITE (CLR/WHITE); Pregs Control Bar Appear? YES (CONTROL BAR)
[2022-05-24 16:55] LABS: MDiff Complete? YES; Macrocytosis SLIGHT = 6-15 cells (100X) (0-5/hpf); Platelet Morphology Comment Appears Adequate
[2022-05-24 17:02] LABS: ALT (SGPT) 81 U/L (8-55); AST (SGOT) 149 U/L (5-34); Albumin 4.3 g/dL (3.5-5.0); Alkaline Phosphatase 105 U/L (40-110); Anion Gap 20 mmol/L (10-20); BUN (Urea Nitrogen) 11 mg/dL (7.0-18.7); Bilirubin, Total 1.2 mg/dL (0.2-1.2); Calc. Creatinine Clearance 0 mL/min (70-130); Calcium 9.9 mg/dL (7.8-10.44); Carbon Dioxide 18 mmol/L (22-29); Chloride 101 mmol/L (98-107); Estimated GFR 106; Glucose 78 mg/dL (70-105); Lipase 17 U/L (8-78); Potassium 4.3 mmol/L (3.5-5.1); Protein, Total 8.3 g/dL (6.0-8.3); Sodium 135 mmol/L (136-145)
[2022-05-24] MEDS ORDERED: Morphine 4 MG/ML VIAL ONE (18:15)
[2022-05-24] MEDS ORDERED: Ondansetron PF 4 MG/2 ML Vial ONE (18:15)
[2022-05-24 20:01] LABS: Bilirubin Negative (Negative); Blood, Urine Negative (Negative); Clarity Clear (Clear); Glucose, Urine (Dipstick) Normal (Negative); Ketone, Urine Greater than 150 mg/dL (Negative); Leukocyte Negative Leu/uL (Negative); Nitrite Negative (Negative); Protein, Urine (Dipstick) 10 mg/dL (Neg-Trace); Urobilinogen Normal mg/dL (Less than 2); pH, Urine 5.5 (5.0-9.0)
[2022-05-24 20:05] LABS: Specific Gravity, Urine 1.044 (1.002-1.036)
== END 2022-05-24 20:23 | disposition home or self-care (01) ==
LOC: ERS 16:13
DX: K76.0 Fatty (change of) liver, not elsewhere classified (principal); I10 Essential (primary) hypertension; Z87.891 Personal history of nicotine dependence
CPT/HCPCS: 36415; 74177; 80053; 81003; 82550; 83690; 84703; 85025; 93005; 96361; 96374; 96375; J2270; J2405; Q0162; Q9967

== ENCOUNTER 2022-05-30 15:42 | Inpatient (IN) | payer OTHER ==
[2022-05-30] MEDS ORDERED: Ondansetron PF 4 MG/2 ML Vial ONE (16:54)
[2022-05-30 17:00] LABS: #Lymphocytes 1.7 thou/uL (1.20-3.40); #Monocytes 0.7 thou/uL (0.11-0.59); %Basophils 0.4 % (0.0-1.0); %Eosinophils 0.4 % (0.0-10.0); %Lymphocytes 20.4 % (21.0-51.0); %Monocytes 7.7 % (0.0-10.0); %Neutrophils 71.1 % (42.0-75.0); Hemoglobin 16.2 g/dL (12.0-16.0); Mean Corpuscular HGB CONC 35.2 g/dL (32.0-36.0); Mean Corpuscular Hemoglobin 37.7 pg (27.0-31.0); Mean Platelet Volume 7.3 fL (7.4-10.4); Platelet Count 346 10x3/uL (130-400); RBC Distribution Width 12.4 % (11.5-14.5); White Blood Cell (WBC) Count 8.5 10x3/uL (4.8-10.8)
[2022-05-30 17:11] LABS: BHCG - Serum Negative (NEGATIVE); Pregs Control Background? CLEAR/WHITE (CLR/WHITE); Pregs Control Bar Appear? YES (CONTROL BAR)
[2022-05-30 17:24] LABS: ALT (SGPT) 94 U/L (8-55); AST (SGOT) 145 U/L (5-34); Albumin 4.5 g/dL (3.5-5.0); Alkaline Phosphatase 115 U/L (40-110); Anion Gap 21 mmol/L (10-20); BUN (Urea Nitrogen) 7 mg/dL (7.0-18.7); Bilirubin, Total 1.1 mg/dL (0.2-1.2); Calc. Creatinine Clearance 0 mL/min (70-130); Calcium 10.2 mg/dL (7.8-10.44); Carbon Dioxide 18 mmol/L (22-29); Chloride 99 mmol/L (98-107); Estimated GFR 108; Globulin 4.8 g/dL (2.4-3.5); Glucose 87 mg/dL (70-105); Potassium 3.1 mmol/L (3.5-5.1); Protein, Total 9.3 g/dL (6.0-8.3); Sodium 135 mmol/L (136-145)
[2022-05-30] MEDS ORDERED: Promethazine HCl 12.5 MG in Sodium Chloride 0.9% 50 ML IVPB SCH (17:30)
[2022-05-30 18:15] LABS: Bacteria/HPF None Seen HPF (None Seen); Bilirubin 1+ (Negative); Blood, Urine Negative (Negative); Clarity Turbid (Clear); Glucose, Urine (Dipstick) Normal (Negative); Ketone, Urine Greater than 150 mg/dL (Negative); Leukocyte Negative Leu/uL (Negative); Nitrite Negative (Negative); Protein, Urine (Dipstick) 50 mg/dL (Neg-Trace); RBC/HPF None Seen HPF (0-3); Specific Gravity, Urine 1.025 (1.002-1.036); Urobilinogen 3 mg/dL (Less than 2); WBC/HPF 0-3 HPF (0-3)
[2022-05-30 18:23] LABS: Amphetamine Not Detected (NotDetected); Barbiturates Screen Not Detected (NotDetected); Benzodiazepine Screen Not Detected (NotDetected); Cocaine Metabolite Screen Not Detected (NotDetected); Methadone Not Detected (NotDetected); Methamphetamine Not Detected (NotDetected); Opiate Screen Not Detected (NotDetected); Oxycodone Screen Not Detected (NotDetected); Phencyclidine (PCP) Not Detected (NotDetected); THC/Cannabinoid Screen Not Detected (NotDetected); Tricyclic Screen Not Detected (NotDetected)
[2022-05-30 19:48] LABS: SARS-CoV-2 NAA Rapid Test Not Detected (NotDetected)
[2022-05-30 19:57] VITALS: BMI 26.6
[2022-05-30] MEDS: Ondansetron PF 4 MG/2 ML Vial IVP PRN (20:49)
[2022-05-30] MEDS: Morphine 4 MG/ML VIAL SLOW IVP PRN (20:50)
[2022-05-30] MEDS: Sodium Chloride 0.9% 1,000 ML IV SCH (20:51)
[2022-05-30] MEDS: Potassium Chloride 20 MEQ in Premix Bag 1 BAG IVPB SCH ×2 (21:56→23:13)
[2022-05-30 22:56] LABS: HBCM Index 0.13 S/CO (0-0.79); HBSAg Index 0.25 S/CO (0-0.99); Hep A IgM AB Non-Reactive (NonReactive); Hep B Surf Ag Non-Reactive S/CO (NonReactive); Hep C IgG Ab Non-Reactive (NonReactive); Hep C Index 0.07 S/CO (0-0.79); Hepatitis B Core IgM Abs Non-Reactive (NonReactive)
[2022-05-31] MEDS: Ondansetron PF 4 MG/2 ML Vial IVP PRN ×3 (04:51→19:53)
[2022-05-31] MEDS: Sodium Chloride 0.9% 1,000 ML IV SCH ×3 (04:52→17:39)
[2022-05-31 07:02] LABS: Hemoglobin A1c 4.5 % (4.0-6.0)
[2022-05-31 07:21] LABS: ALT (SGPT) 55 U/L (8-55); AST (SGOT) 85 U/L (5-34); Alkaline Phosphatase 75 U/L (40-110); Anion Gap 14 mmol/L (10-20); BUN (Urea Nitrogen) 4 mg/dL (7.0-18.7); Bilirubin, Total 0.8 mg/dL (0.2-1.2); Calc. Creatinine Clearance 145 mL/min (70-130); Calcium 8.2 mg/dL (7.8-10.44); Carbon Dioxide 15 mmol/L (22-29); Cardiac Risk 5.4 (Less than 4.5); Chloride 109 mmol/L (98-107); Cholesterol 162 mg/dl (< 200 Desired); Estimated GFR 118; Gamma GT (GGT) 166 U/L (9-36); Globulin 3.1 g/dL (2.4-3.5); Glucose 76 mg/dL (70-105); HDL Cholesterol 30 mg/dL (>60 Neg Risk); Iron 74 ug/dL (50-170); LDL Cholesterol, Calculated 118 mg/dL; Potassium 3.4 mmol/L (3.5-5.1); Protein, Total 6.1 g/dL (6.0-8.3); Sodium 135 mmol/L (136-145); Triglycerides 68 mg/dL (Less than 150)
[2022-05-31 07:26] LABS: #Eosinphils 0.1 thou/uL (0.0-0.7); #Lymphocytes 1.5 thou/uL (1.20-3.40); #Monocytes 0.7 thou/uL (0.11-0.59); #Neutrophils 4.3 thou/uL (1.40-6.50); %Basophils 0.3 % (0.0-1.0); %Lymphocytes 23.3 % (21.0-51.0); %Monocytes 10.4 % (0.0-10.0); %Neutrophils 64.9 % (42.0-75.0); Hemoglobin 12.7 g/dL (12.0-16.0); Mean Corpuscular Hemoglobin 38.7 pg (27.0-31.0); Mean Platelet Volume 7.6 fL (7.4-10.4); Platelet Count 281 10x3/uL (130-400); RBC Distribution Width 12.3 % (11.5-14.5); Red Blood Cell (RBC) Count 3.29 mill/uL (4.20-5.40); White Blood Cell (WBC) Count 6.6 10x3/uL (4.8-10.8)
[2022-05-31 07:35] LABS: Ferritin 700.05 ng/mL (10-291); Thyroid Stimulating Hormone 1.064 uIU/mL (0.35-4.94)
[2022-05-31] MEDS ORDERED: Potassium Chloride 20 MEQ TAB PO SCH (08:45)
[2022-05-31 12:25] LABS: ANA Symphony (Qualitative) Negative (Negative); ANA Symphony (Quantitative) 0.4 Ratio (< 0.7 Negative)
[2022-05-31] MEDS: NIFEdipine XL 30 MG TAB PO SCH (12:46)
[2022-05-31] MEDS: Morphine 4 MG/ML VIAL SLOW IVP PRN ×2 (12:47→19:54)
[2022-05-31] MEDS: Pantoprazole 40 MG VIAL IVP SCH (19:52)
[2022-06-01] MEDS: Sodium Chloride 0.9% 1,000 ML IV SCH ×3 (01:24→22:05)
[2022-06-01 07:08] LABS: Hemoglobin 14.1 g/dL (12.0-16.0); Mean Corpuscular HGB CONC 33.7 g/dL (32.0-36.0); Mean Corpuscular Hemoglobin 36.9 pg (27.0-31.0); Mean Platelet Volume 7.5 fL (7.4-10.4); Platelet Count 344 10x3/uL (130-400); RBC Distribution Width 12.2 % (11.5-14.5); Red Blood Cell (RBC) Count 3.83 mill/uL (4.20-5.40); White Blood Cell (WBC) Count 6.1 10x3/uL (4.8-10.8)
[2022-06-01 07:27] LABS: Anion Gap 15 mmol/L (10-20); BUN (Urea Nitrogen) Less than 4 mg/dL (7.0-18.7); Calc. Creatinine Clearance 140 mL/min (70-130); Carbon Dioxide 19 mmol/L (22-29); Chloride 104 mmol/L (98-107); Estimated GFR 117; Glucose 88 mg/dL (70-105); Potassium 3.6 mmol/L (3.5-5.1); Sodium 134 mmol/L (136-145)
[2022-06-01 07:44] LABS: HIV (1/2) Antibody/Antigen Non-Reactive (NonReactive); HIV 1/2 INDEX 0.17 S/CO (<1.00)
[2022-06-01] MEDS: Metoclopramide HCl 10 MG/2 ML VIAL IVP SCH ×3 (09:43→20:43)
[2022-06-01] MEDS: Morphine 4 MG/ML VIAL SLOW IVP PRN ×3 (09:43→20:43)
[2022-06-01] MEDS: NIFEdipine XL 30 MG TAB PO SCH (09:44)
[2022-06-01] MEDS: Pantoprazole 40 MG VIAL IVP SCH ×2 (09:44→20:44)
[2022-06-01] MEDS: Ondansetron PF 4 MG/2 ML Vial IVP PRN (15:06)
[2022-06-02] MEDS: Metoclopramide HCl 10 MG/2 ML VIAL IVP SCH ×4 (02:59→20:43)
[2022-06-02] MEDS: NIFEdipine XL 30 MG TAB PO SCH (07:54)
[2022-06-02] MEDS: Morphine 4 MG/ML VIAL SLOW IVP PRN (07:54)
[2022-06-02] MEDS: Pantoprazole 40 MG VIAL IVP SCH ×2 (07:55→20:41)
[2022-06-02] MEDS: Ondansetron PF 4 MG/2 ML Vial IVP PRN ×2 (07:55→16:18)
[2022-06-02] MEDS: Sodium Chloride 0.9% 1,000 ML IV SCH ×2 (07:56→16:18)
[2022-06-02] MEDS ORDERED: Morphine 4 MG/ML VIAL SLOW IVP PRN (11:43)
[2022-06-02] MEDS: Hyoscyamine SL 0.125 MG TAB SL PRN ×2 (16:18→20:49)
[2022-06-03] MEDS: Metoclopramide HCl 10 MG/2 ML VIAL IVP SCH ×3 (03:12→16:12)
[2022-06-03] MEDS: Sodium Chloride 0.9% 1,000 ML IV SCH (04:13)
[2022-06-03] MEDS: NIFEdipine XL 30 MG TAB PO SCH (08:23)
[2022-06-03] MEDS: Hyoscyamine SL 0.125 MG TAB SL PRN ×2 (08:24→16:42)
[2022-06-03] MEDS: Pantoprazole 40 MG VIAL IVP SCH (08:24)
[2022-06-03] MEDS: Ondansetron PF 4 MG/2 ML Vial IVP PRN (08:24)
[2022-06-03 09:18] LABS: Anion Gap 14 mmol/L (10-20); BUN (Urea Nitrogen) Less than 4 mg/dL (7.0-18.7); Calc. Creatinine Clearance 150 mL/min (70-130); Calcium 8.4 mg/dL (7.8-10.44); Carbon Dioxide 19 mmol/L (22-29); Chloride 105 mmol/L (98-107); Estimated GFR 119; Glucose 80 mg/dL (70-105); Magnesium 1.5 mg/dL (1.6-2.6); Phosphorus 3.1 mg/dL (2.3-4.7); Potassium 2.7 mmol/L (3.5-5.1); Sodium 135 mmol/L (136-145)
[2022-06-03] MEDS ORDERED: Potassium Chloride 20 MEQ TAB PO SCH (09:30)
[2022-06-03] MEDS: Potassium Chloride 20 MEQ in Premix Bag 1 BAG IVPB SCH ×2 (10:16→13:59)
[2022-06-03] MEDS ORDERED: Magnesium 2 GM/50 ML(in water) 2 GM in Premix Bag 1 BAG IVPB SCH (11:30)
[2022-06-03 16:31] VITALS: BP 131/86; TEMP 98.6
== END 2022-06-03 19:50 | disposition home or self-care (01) | DRG 392 ==
LOC: SUATTDRO 15:42 → ERS 15:42 → T4-A 18:03 → OBSVTOIN 06-01 08:25
PROVIDERS: ADMIT Internal Medicine; ATTEND Internal Medicine
PROC: 0DB68ZX Excision of Stomach, Via Natural or Artificial Opening Endoscopic, Diagnostic (ICD-10-PCS; principal; 2022-06-01)
DX: K58.0 Irritable bowel syndrome with diarrhea (principal); E87.1 Hypo-osmolality and hyponatremia; K29.60 Other gastritis without bleeding; Z20.822 Contact with and (suspected) exposure to COVID-19; K21.00 Gastro-esophageal reflux disease with esophagitis, without bleeding; K31.89 Other diseases of stomach and duodenum; E87.6 Hypokalemia; E83.42 Hypomagnesemia; K76.0 Fatty (change of) liver, not elsewhere classified; I10 Essential (primary) hypertension; Z88.0 Allergy status to penicillin; Z90.89 Acquired absence of other organs; Z79.899 Other long term (current) drug therapy
CPT/HCPCS: 36415; 36416; 76705; 78227; 80048; 80053; 80061; 80074; 80306; 81003; 81015; 82728; 82977; 83036; 83540; 83605; 83735; 84100; 84443; 84703; 85025; 85027; 86015; 86038; 86225; 87389; 88305; 96372; 96375; 96376; A9537; C9113; G0378; J1650; J2270; J2405; J2550; J2765; J3475; J3480; J7050; U0002